=== PATIENT | male | born 1955 | race Caucasian/White ===

== ENCOUNTER 2017-11-02 09:01 | Emergency (ER) | payer OTHER ==
[2017-11-02] MEDS ORDERED: ACETAMINOPHEN 500 MG TABLET PO ONE (09:41)
[2017-11-02] MEDS: 0.9 % SODIUM CHLORIDE 1,000 ML IV ONE ×2 (09:45→09:55)
[2017-11-02] MEDS: KETOROLAC TROMETHAMINE 30 MG/1ML VIAL IVP ONE (09:50)
[2017-11-02 09:52] LABS: BASOPHILS % 0.4 (0.0-1.5); EOSINOPHILS % 1.8 % (0.0-6.8); MEAN CORPUSCULAR HEMOGLOBIN 31.4 pg (28.0-34.0); MEAN CORPUSCULAR VOLUME 88.9 fl (80.0-100.0); MONOCYTES % 4.3 % (0.0-11.0); NEUTROPHILS # 10.2 # k/uL (1.4-7.7)
[2017-11-02 10:04] LABS: eGFR (African) > 60; eGFR (Non-African) > 60
--- NOTE | 2017-11-02 10:07 | ED Physician Documentation ---
Upper Respiratory Symptoms - HISTORIAN Historian: patient - HPI Chief Complaint: Cough/ Upper Respiratory Onset: other (yesterday) Severity: moderate Associated Symptoms: fever, chills, sinus drainage, sore throat, productive cough, hurts to breathe, headache Further Comments: yes (61 year old male patient presents with complaints of fever, chills, cough, sore throat, hurts to breath, midsternal pain with coughing. Patient reports symptoms started yesterday. Took 2 tylenol this morning.) - ROS CONST/EYES: weakness. denies: eye redness, eye itching CVS/RESP: chest pain (with coughing), shortness of breath (with cough). denies : palpitations LYMPH: denies: leg swelling, rash, swollen glands, ankle swelling GI/: none NEURO/PSYCH: denies: fainting, dizziness, confusion, anxiety, depression, other MS/SKIN: denies: joint pain, muscle aches, rash, other - PAST HX Lung Disease: none PE Risk Factors: hypertension Other History: other (CAD, HTN, HLD) Surgeries/Procedures: cardiac bypass, other (left wrist fracture, rotator cuff repair) Allergies/Adverse Reactions: Allergies Allergy/AdvReac Type Severity Reaction Status Date / Time No Known Allergies Allergy Verified 11/02/17 10:04 Home Medications: Ambulatory Orders Medication Instructions Recorded Aspirin [Mikal] 0.5 tab PO DAILY 09/09/15 Lisinopril [Lisinopril] 1 tab PO DAILY 09/09/15 Metoprolol Tartrate [Lopressor] 1 tab PO DAILY 09/09/15 Simvastatin [Simvastatin] 1 tab PO DAILY 09/09/15 Ondansetron HCl Rapdis [Zofran Odt] 4 mg PO Q6 PRN #30 tab 11/02/17 Oseltamivir Phosphate [Tamiflu] 75 mg PO BID #10 capsule 11/02/17 - SOCIAL HX Smoking History: non-smoker - FAMILY HX Family History: denies: none - VITAL SIGNS Vital Signs: Vital Signs Temp Pulse Resp BP Pulse Ox 99 F 107 H 20 104/73 95 11/02/17 09:05 11/02/17 09:05 11/02/17 09:05 11/02/17 09:05 11/02/17 09:05 - REVIEWED ASSESSMENTS Nursing Assessment Reviewed: Yes Vitals Reviewed: Yes Progress - Progress Progress: IV fluids and toradol given in ER. BBS clear after nebulizer At discharge patient states he feels much better. Reviewed discharge instructions with patient. Verbalized understanding. Will start tamiflu as symptoms started yesterday. ED Results Lab/Radiology - Lab Results Lab Results: Lab Results 11/02/17 11/02/17 11/02/17 09:40 09:40 09:40 WBC 11.40 K/ul K/ul (4.00-12.00) RBC 5.03 M/ul M/ul (3.90-5.20) Hgb 15.8 g/dL g/dL (12.0-18.0) Hct 44.7 % % (37.0-53.0) MCV 88.9 fl fl (80.0-100.0) MCH 31.4 pg pg (28.0-34.0) MCHC 35.3 g/dL g/dL (30.0-36.0) RDW 12.8 % % (11.3-14.3) Plt Count 296 K/mm3 K/mm3 (130-400) Neut % (Auto) 89.4 % H % (39.0-79.0) Lymph % (Auto) 3.3 % L % (16.0-50.0) Carson % (Auto) 4.3 % % (0.0-11.0) Eos % (Auto) 1.8 % % (0.0-6.8) Baso % (Auto) 0.4 (0.0-1.5) Neut # (Auto) 10.2 # k/uL H # k/uL (1.4-7.7) Lymph # (Auto) 0.4 # k/uL L # k/uL (0.6-4.0) Carson # (Auto) 0.5 # k/uL # k/uL (0.0-0.9) Eos # (Auto) 0.2 # k/uL # k/uL (0.0-0.6) Baso # (Auto) 0.0 # k/uL # k/uL (0.0-0.5) Reactive Lymphs % 0.9 % % (0.0-5.0) Reactive Lymphs # 0.1 # k/uL # k/uL (0.0-0.8) Sodium 135 mmol/L L mmol/L (136-145) Potassium 3.5 mmol/L mmol/L (3.5-5.1) Chloride 98 mmol/L mmol/L (98-107) Carbon Dioxide 26 mmol/L mmol/L (22-30) BUN 13 mg/dL mg/dL (9-20) Creatinine 0.80 mg/dL mg/dL (0.66-1.25) Est GFR ( Amer) > 60 (60 - ) Est GFR (Non-Af Amer) > 60 (60 - ) Glucose 140 mg/dL H mg/dL (74-106) Lactate 1.4 U/L U/L (0.7-2.1) Calcium 8.6 mg/dL mg/dL (8.4-10.2) Total Bilirubin 0.2 mg/dL mg/dL (0.2-1.3) AST 32 U/L U/L (15-46) ALT 44 U/L U/L (13-69) Alkaline Phosphatase 85 U/L U/L (38-126) Troponin I < 0.03 ng/mL L ng/mL (0.03-0.06) Total Protein 7.3 g/dL g/dL (6.3-8.2) Albumin 3.9 g/dL g/dL (3.5-5.0) Influenza A (Rapid) Influenza B (Rapid) Group A Strep Screen 11/02/17 11/02/17 09:20 09:20 WBC RBC Hgb Hct MCV MCH MCHC RDW Plt Count Neut % (Auto) Lymph % (Auto) Carson % (Auto) Eos % (Auto) Baso % (Auto) Neut # (Auto) Lymph # (Auto) Carson # (Auto) Eos # (Auto) Baso # (Auto) Reactive Lymphs % Reactive Lymphs # Sodium Potassium Chloride Carbon Dioxide BUN Creatinine Est GFR ( Amer) Est GFR (Non-Af Amer) Glucose Lactate Calcium Total Bilirubin AST ALT Alkaline Phosphatase Troponin I Total Protein Albumin Influenza A (Rapid) Negative (NEGATIVE) Influenza B (Rapid) Positive H (NEGATIVE) Group A Strep Screen Negative (NEGATIVE) - Radiology Radiology Impressions: Ap portable upright radiographs of the chest Clinical history: Coughing and wheezing Technique: anterior /posterior portable upright Findings: The lung mena are clear. The heart is not enlarged. .. The bony thorax is unremarkable. No pneumothorax or pleural effusion is seen. Impression: No acute pulmonary infiltrate Electronically signed on Nov 02, 2017 10:29:19 AM OEM SALES MANAGER by: Alan Orozco - Orders Orders: ED Orders Category Date Time Status Place IV Lock 1T Care 11/02/17 09:41 Active CHEST 1 VIEW [RAD] Stat Exams 11/02/17 09:41 Completed CBC/PLATELET/DIFF Stat Lab 11/02/17 09:40 Completed CMP Stat Lab 11/02/17 09:40 Completed GRP A STREP SCREEN Stat Lab 11/02/17 09:20 Completed INFLUENZA A&B Routine Lab 11/02/17 09:20 Completed INFLUENZA A&B Stat Lab 11/02/17 09:36 Uncollected LACTATE Stat Lab 11/02/17 09:40 Completed THROAT CULTURE Stat Lab 11/02/17 09:20 Received TROPONIN I (cTnI) Stat Lab 11/02/17 09:40 Completed 0.9 % Sodium Chloride [Normal Saline] 1,000 ml Med 11/02/17 09:40 Discontinued IV .STK-MED 0.9 % Sodium Chloride [Normal Saline] 1,000 ml Med 11/02/17 09:41 Discontinued IV NOW Acetaminophen [Tylenol Extra Strength] Med 11/02/17 09:41 Discontinued 1,000 mg PO NOW ONE Albuterol Sulfate [Ventolin] Med 11/02/17 09:50 Discontinued 2.5 mg NEB NOW ONE Ketorolac Tromethamine [Toradol] Med 11/02/17 09:41 Discontinued 30 mg IVP NOW ONE Oxygen Daily Oxygen 11/02/17 09:45 Ordered EKG WITH COMPARISON Stat Ther 11/02/17 09:41 Ordered Upper Respiratory Symptoms - EXAM General Appearance: moderate distress EENT: eyes nml inspection, nml ENT inspection, lids & conjunct. nml, PERRL, nose nml, airway nml, pharyngeal erythema Respiratory: no resp. distress, no pain on inspiration, speaks full sentences, decreased air movement (bases), rales (LLL), chest wall tenderness (midsternal, worse with cough), other (productive cough) CVS: reg rate & rhythm, heart sounds normal, equal pulses, no murmur, no gallop , PMI nml, no JVD, no friction rub, 24 Skin: warm,dry, pallor Extremities: non-tender, normal range of motion, no evidence of injury, no edema , J, FAMILY WORKER Neuro/Psych: oriented x3, neuro intact, mood/affect nml, CN's nml as tested Discharge Clincal Impression: Influenza B Prescriptions: Ondansetron HCl Rapdis [Zofran Odt] 4 mg PO Q6 PRN #30 tab PRN Reason: Nausea / Vomiting Oseltamivir Phosphate [Tamiflu] 75 mg PO BID #10 capsule Referrals: Eagle Carballo MD [Primary Care Provider] - 2 Days Additional Instructions: gambling floor supervisor prescriptions and start them today. Rest Have plenty of sleep and rest. Stay away from others while you have a cold or flu. Take simple painkillers Such as Tylenol or ibuprofen, to help relieve headaches, muscles aches and pains and fever. Keep hydrated (drink plenty of fluids) This will help keep your throat moist and replace fluid lost due to a fever and sweating. Plenty of water is best. Avoid caffeine and alcohol as they will make you more dehydrated. Eat soft food If you have a sore throat soft foods are easier to swallow. Foods such as chicken soup may help a sore throat and reduce mucous (sticky fluid). gambling floor supervisor an over the counter decongestant such as pseudoped, dayquil and Nyquil at your pharmacy. You may want to try Vicks rub on your chest and/or feet. ( Caution: Dayquil and Nyquil contain 325mg of Tylenol/acetaminophen per tablespoon) Cough drops as needed for cough and sore throat. Increase your fluid intake juices, hot tea, non-caffeinated beverages Vitamin C may be helpful in decreasing the length of your cold. Use a humidifier in the room where you sleep. You can also sit in a steam filled bathroom 1-2 times a day. Tylenol every 4 hours 650mg -1000mg (do not exceed 4000mg in 24 hours) as needed for fever, pain and body aches. Alternate with Ibuprofen Ibuprofen 600-800mg every 6 hours as needed for fever, pain and body aches. See your primary care doctor if your symptoms become worse or do not improve in the next 3-4 days. Condition: Stable Disposition: 01 HOME, SELF-CARE Decision to Admit: NO Decision Time: 11:40
[2017-11-02] MEDS: ALBUTEROL SULFATE 2.5 MG/3 ML AMPUL.NEB NEB ONE (11:19)
--- NOTE | 2017-11-02 11:37 | Diagnostic Imaging Report ---
LAURA ARZATE (ESTRADA) - ER~ [facility] [address] [facility].[address] [address] ~ ~ ~ ~ Report Submission Date: Nov 02, 2017 10:29:19 AM WAFER SLICER Patient ~ Study Name: ORDO DEL ROSARIO ~ Date: Nov 02, 2017 10:15:01 AM WAFER SLICER ~ Modality Type: CR Gender: M ~ Description: CHEST : 57 ~ Institution: [facility] Physician: LAURA ARZATE) - ER ~ ~ ~ Ap portable upright radiographs of the chest Clinical history: Coughing and wheezing Technique: anterior /posterior portable upright Findings: The lung mena are clear. The heart is not enlarged. .. The bony thorax is unremarkable. No pneumothorax or pleural effusion is seen. Impression: No acute pulmonary infiltrate ~ Electronically signed on Nov 02, 2017 10:29:19 AM WAFER SLICER by: Alan AGUILAR
[2017-11-02 13:13] VITALS: BP 98/58
== END 2017-11-02 11:55 | disposition home or self-care (01) ==
LOC: ED 09:01
DX: J10.1 Influenza due to other identified influenza virus with other respiratory manifestations (principal); I10 Essential (primary) hypertension
CPT/HCPCS: 71010; 80053; 83605; 84484; 85025; 87070; 87400; 87880; 93005; J1885; J7030; 94640; 96361; 96375; 99283; S1016

== ENCOUNTER 2018-02-12 | Outpatient (CLI) | payer OTHER | END 2018-02-12 09:17 | DX: K40.90 Unilateral inguinal hernia, without obstruction or gangrene, not specified as recurrent (principal) | CPT/HCPCS: 99213 ==

== ENCOUNTER 2018-02-26 07:25 | Day surgery (SDC) | payer OTHER ==
--- NOTE | 2018-02-26 11:23 | Operative Note ---
SURGEON: Bahman Martin MD ANESTHESIA: General. ESTIMATED BLOOD LOSS: Minimal. COMPLICATIONS: None. APPARENT FINDINGS: Direct inguinal hernia. PREOPERATIVE DIAGNOSIS: Left inguinal hernia. POSTOPERATIVE DIAGNOSES: Left inguinal hernia. PROCEDURE PERFORMED: Repair of left inguinal hernia with mesh. INDICATIONS FOR PROCEDURE: This is a 62-year-old gentleman with a symptomatic left inguinal hernia who presents for repair. DESCRIPTION OF PROCEDURE: Patient was brought to the operating room with general anesthesia achieved. The left groin was prepped and draped. An oblique incision was made and carried to the subcutaneous tissues. The external oblique fascia was sharply divided. The cord and its contents were encircled with a Estela drain. There was a large direct hernia. There was no indirect sac. The inguinal floor was repaired with a Marlex mesh. It was sewn to the pubic tubercle medially and along the shelving edge of the inguinal ligament inferiorly with a running 2 -0 Prolene suture and it was sewn to the transversalis fascia superiorly. The tails of the mesh were tacked lateral to the ring. The wound was irrigated and suctioned. There was no bleeding. The external oblique fascia was closed with a running 2-0 Vicryl suture, the subcutaneous tissues with 3-0 Vicryl, and the skin with 4-0 Vicryl. Local anesthesia was injected in the incision. A Steri- Strip dressing were were placed over the incision. The patient was awakened and extubated in the operating room and taken to the recovery room in good condition. cc: Dr. Eagle AGUILAR
== END 2018-02-26 07:26 ==
LOC: OPSURG 07:25
PROVIDERS: ATTEND Colon & Rectal Surgery
DX: K40.90 Unilateral inguinal hernia, without obstruction or gangrene, not specified as recurrent (principal)
CPT/HCPCS: J0690; J1100; J2001; J2405; J2704; J7120; 49505; C1781; S1016